=== PATIENT | female | born 1975 | race American Indian/Alaskan Native ===

== ENCOUNTER 2017-02-10 13:44 | Emergency (ER) | payer SELFPAY ==
[2017-02-10 13:58] VITALS: BP 131/79
--- NOTE | 2017-02-10 17:22 | Emergency Department Report ---
HPI - General Chief Complaint: Allergic Reaction - HPI HPI: 41 y/o F presents with an allergic reaction to Bactrim. Pt states that she was at [facility] yesterday and was started on Bactrim for a staph infection. She states that this is her second staph infection. Pt states that since she started the Bactrim she has noticed a red rash, itching, mild burning at the site. She denies any peeling of the skin, or oral lesions in the mouth. She denies any signs of resp distress, chest pain/tightness, fever, chills, chest pain/chest tightness at this time. Pt states that she had a tubal ligation and no chance of . Pt states that she has tried nothing for her symptoms at this time. Pt has known allergy to keflex and bactrim. ED Past Medical Hx - Past Medical History Previous Medical History?: No - Surgical History Past Surgical History?: Yes Additional Surgical History: tubal - Social History Smoking Status: Current Every Day Smoker Substance Use Type: Alcohol - Medications Home Medications: Home Medications Medication Instructions Recorded Confirmed Last Taken Type Clindamycin [Clindamycin CAP] 300 mg PO Q8H #30 cap 02/10/17 Unknown Rx ED Review of Systems ROS: Stated complaint: ALLERGIC RX TO MEDICATION , RASH, BURNING Other details as noted in HPI Constitutional: chills, other (no reported fever) Eyes: denies: eye pain, eye discharge, vision change ENT: denies: ear pain, throat pain Respiratory: denies: cough, shortness of breath, wheezing Cardiovascular: denies: chest pain, palpitations Gastrointestinal: denies: abdominal pain, nausea, diarrhea Genitourinary: denies: urgency, dysuria, discharge Musculoskeletal: denies: back pain, joint swelling, arthralgia Skin: rash (red rash that pt states feels like it is burning, no reported peeling), other (reports a small half an inch lesion noted at left inguinal region) Neurological: denies: headache, weakness, paresthesias Psychiatric: denies: anxiety, depression Physical Exam - Physical Exam Vital Signs: Vital Signs 02/10/17 13:56 Temperature 99.6 F Pulse Rate 87 Respiratory 16 Rate Blood Pressure 131/79 O2 Sat by Pulse 98 Oximetry General: pt appears alert and oriented and in no resp distress, peacefully laying in the hopsital bed. Airway of the throat is patent, no signs of respiratory distress. Physical Exam: There was a small 0.5 in lesion noted at the left inguinal region covered with a bandaid. There was a diffuse red rash noted diffusely throughout the body. There was no mucosal lesions or peeling of the skin noted, no warmth to touch. Body Four View: 1 - diffuse red rash noted throughout body, no peeling or warmth 2 - diffuse red rash noted throughout the body, no peeling or warmth 3 - lesion noted, no tenderness, no oozing/pus or drainage noted at the site ED Course Vital Signs 02/10/17 13:56 Temperature 99.6 F Pulse Rate 87 Respiratory 16 Rate Blood Pressure 131/79 O2 Sat by Pulse 98 Oximetry ED Medical Decision Making - Medical Decision Making Pt was seen and examined by myself and Dr. Hammer. There was no evidence of Lit Johnsons or TEN, no rashes, no fever. Pt had such rash erupt last time she was placed on Bactrim. pt was advised to discontinue the drug. She was treated for an allergic reaction with Decadron 10 mg and Pepcid 20 mg in the ED. She was driving herself home, therefore, I have avoided benadryl at this time and encouraged it at home. She was discharged with Clindamycin TID for the next 10 days. Referals for ID and PCP were provided for patient today. Pt was discharged in stable condition, alert and oriented, and in no acute respiratory distress. Critical care attestation.: If time is entered above; I have spent that time in minutes in the direct care of this critically ill patient, excluding procedure time. ED Disposition Clinical Impression: Rash Allergic reaction Qualifiers: Encounter type: initial encounter Qualified Code(s): T78.40XA - Allergy, unspecified, initial encounter Disposition: - TO HOME OR SELFCARE Is pt being admited?: No Does the pt Need Aspirin: No Condition: Stable Instructions: Clindamycin (On the skin), Methicillin Resistant Staphylococcus Aureus (ED) Additional Instructions: Please take Benadryl once you return home for the allergic reaction symptoms. Please stop Bactrim usage. Begin Clindamycin as prescribed to you today, please take with probiotics or yogurt. Please follow-up with your PCP within 3- 5 days. Please go to the specialist within 1 week for reevaluation. Return to the ED immediately with any acute worsening or your symptoms such as chest pain/ chest tightness, or SOB. Prescriptions: Clindamycin [Clindamycin CAP] 300 mg PO Q8H #30 cap Referrals: [facility] [Outside] - 3-5 Days [facility] [Outside] - 3-5 Days CHAPARRO GONZALEZ MD [Staff Physician] - 3-5 Days PRIMARY CAREMD [Primary Care Provider] - 3-5 Days Forms: Work/School Release Form(ED)
[2017-02-10] MEDS: PEPCID PO ONE (18:23)
[2017-02-10] MEDS: DECADRON PO ONE (18:23)
== END 2017-02-10 18:57 | disposition home or self-care (01) ==
LOC: ED 13:44
DX: T78.40XA Allergy, unspecified, initial encounter (principal); R21 Rash and other nonspecific skin eruption; Y92.9 Unspecified place or not applicable; F17.200 Nicotine dependence, unspecified, uncomplicated
CPT/HCPCS: 99282; J8540

== ENCOUNTER 2018-01-13 11:26 | Day surgery (SDC) | payer OTHER ==
[~2018-01-13 11:26] MED LIST: DEMEROL IV PRN; DILAUDID IV PRN; LACTATED RINGERS 1,000 ML IV SCH; TORADOL IV PRN; VERSED IV NR; ZOFRAN IV PRN
--- NOTE | 2018-01-13 13:28 | Anesthesia Consultation ---
Anesthesia Consult and Med Hx Date of service: 01/13/18 - Airway Anesthetic Teeth Evaluation: Good ROM Head & Neck: Adequate Mental/Hyoid Distance: Adequate Mallampati Class: Class I Intubation Access Assessment: Probably Good - Pulmonary Exam CTA: Yes - Cardiac Exam Cardiac Exam: RRR - Pre-Operative Health Status ASA Pre-Surgery Classification: ASA2 Proposed Anesthetic Plan: General - Pulmonary Hx Smoking: Yes (Vapes) Hx Asthma: No - Cardiovascular System Hx Hypertension: No Hx Cardia Arrhythmia: No - Central Nervous System Hx Neuromuscular Disorder: No Hx Psychiatric Problems: No - Gastrointestinal Hx Gastroesophageal Reflux Disease: No - Endocrine Hx Renal Disease: No Hx Cirrhosis: No - Hematic Hx Sickle Cell Disease: No - Other Systems Hx Alcohol Use: Yes (Occas) Hx Cancer: No Hx Obesity: Yes - Additional Comments Anesthesia Medical History Comments: No GAC, No FHAC
[2018-01-13] MEDS ORDERED: PEPCID IV ONE (13:41)
[2018-01-13] MEDS ORDERED: DIPRIVAN 10 MG/ML IV ONE (13:48)
[2018-01-13] MEDS ORDERED: SUBLIMAZE ONE (13:49)
[2018-01-13] MEDS ORDERED: XYLOCAINE MPF 2% ONE (13:53)
[2018-01-13] MEDS ORDERED: PEPCID IV NR (14:00)
[2018-01-13] MEDS ORDERED: DECADRON ONE (14:12)
[2018-01-13] MEDS ORDERED: ZOFRAN ONE (14:12)
[2018-01-13] MEDS ORDERED: TORADOL ONE (14:29)
--- NOTE | 2018-01-13 14:42 | Operative Report ---
Operative Report Operative Report: Preoperative diagnosis: 1. Abnormal uterine bleeding. 2. Thickened endometrial lining. Postoperative diagnosis: Same as preoperative diagnosis. Procedure: 1. Hysteroscopy. 2. D&C. Surgeon: Dr. Reddy Roof Service Technician: none Anesthesia: General IVF: RL 1 liter EBL: < 25 cc Complications: none Procedure details: Risk, benefits, and alternatives of the procedure were discussed in detail with the patient which included but not limited to the risk of infection, hemorrhage requiring blood transfusion, and uterine perforation. The patient expressed understanding, her questions were answered, and she gave informed consent. The patient was taken to the operating room with an IV fluids infusing Ringer's lactate. In the operating room, she was placed in the dorsal supine position and given general anesthesia. She was then placed on the stirrups in a dorsal lithotomy position. The perineum, vagina, and cervix were washed and she was prepared and draped in usual sterile fashion. A weighted speculum was placed on the posterior vaginal wall, the anterior lip of the cervix was grasped a single-tooth tenaculum. The cervical os was dilated. Endocervical curettage was done. The hysteroscope was introduced into the uterine cavity. It revealed a very thickened endometrial lining. The ostia were not visualized. The hysteroscope was removed from the uterine cavity and a gentle curettage was performed until a gritty texture was noticed. Moderate moderate amount of tissue was collected for pathology. The instruments were then removed from the uterus, cervix, and vagina. The count of laps, needles, sponges and instruments were correct 2. She tolerated the procedure well. She was awakened from the anesthesia and taken to the recovery room in a stable condition.
--- NOTE | 2018-01-13 15:26 | Anesthesia Day of Surgery ---
Anesthesia Day of Surgery - Day of Surgery Patient Examined: Yes Patient H&P Reviewed: Yes Patient is NPO: Yes
--- NOTE | 2018-01-13 15:27 | Post Anesthesia Evaluation ---
- Post Anesthesia Evaluation Patient Participated: Yes Airway Patent: Yes Stable Respiratory Function: Yes Nausea/Vomiting: No Temp > 96.8F: Yes Pain Manageable: Yes Adequeate Hydration: Yes Anesthesia Complications: No
[2018-01-13 17:41] VITALS: BP 139/87
== END 2018-01-13 16:25 | disposition home or self-care (01) ==
LOC: OR 11:26
PROVIDERS: ATTEND Obstetrics & Gynecology
DX: N92.0 Excessive and frequent menstruation with regular cycle (principal); R93.8 Abnormal findings on diagnostic imaging of other specified body structures; K21.9 Gastro-esophageal reflux disease without esophagitis; M19.90 Unspecified osteoarthritis, unspecified site; F17.210 Nicotine dependence, cigarettes, uncomplicated; E11.9 Type 2 diabetes mellitus without complications; I11.9 Hypertensive heart disease without heart failure; N19 Unspecified kidney failure; E66.9 Obesity, unspecified; Z68.27 Body mass index [BMI] 27.0-27.9, adult; Z88.2 Allergy status to sulfonamides; Z98.51 Tubal ligation status; Z79.899 Other long term (current) drug therapy; Z98.890 Other specified postprocedural states; Z72.89 Other problems related to lifestyle
CPT/HCPCS: 58558; 81025; 88305; J1100; J1885; J2250; J2405; J2704; J3010; J7120